=== PATIENT | male | born 1985 | race Caucasian/White ===

== ENCOUNTER 2021-03-11 20:05 | Emergency (ER) | payer OTHER ==
[2021-03-11 21:30] LABS: HEMOGLOBIN 11.5 gm/dl (14.0-17.5); RED BLOOD COUNT 3.81 M/UL (4.20-5.50); WHITE BLOOD COUNT 6.8 K/UL (4.5-11.0)
[2021-03-11 21:55] LABS: BUN/CREATININE RATIO 6 (0-10)
[2021-03-12] MEDS ORDERED: LANTUS100 UNIT/1 SQ (00:33)
== END 2021-03-12 00:45 | disposition home or self-care (01) ==
LOC: ER1 20:05
PROVIDERS: Physician Assistant
DX: E11.65 Type 2 diabetes mellitus with hyperglycemia (principal); Z79.4 Long term (current) use of insulin; Z79.899 Other long term (current) drug therapy; F17.200 Nicotine dependence, unspecified, uncomplicated
CPT/HCPCS: 70450; 72125; 72129; 72132; 80053; 80307; 82962; 85025; 99284; Q9967

== ENCOUNTER 2021-04-02 13:23 | Emergency (ER) | payer OTHER ==
[~2021-04-02 13:23] MED LIST: LANTUS100 UNIT/1 SQ
== END 2021-04-02 13:57 | disposition left against medical advice (07) ==
LOC: ER1 13:23
DX: Z53.21 Procedure and treatment not carried out due to patient leaving prior to being seen by health care provider (principal)
CPT/HCPCS: 99283